=== PATIENT | male | born 1970 | race Caucasian/White ===

== ENCOUNTER 2019-10-30 06:19 | Emergency (ER) | payer OTHER ==
[~2019-10-30] VITALS: Ht 182.9 cm; Wt 72.6 kg
[2019-10-30 07:00] LABS: ABSOLUTE NEUTROPHILS 8.3 thou/uL (1.4-8.2); BASOPHILS 0.4 % (0.0-2.0); EOSINOPHILS 0.1 % (0.0-3.0); HEMATOCRIT 51.1 % (42.0-52.0); HEMOGLOBIN 17.6 gm/dL (14.0-18.0); MCH 31.5 pg (26.0-34.0); MCHC 34.3 g/dL (28.0-37.0); MCV 91.7 fL (80.0-100.0); MONOCYTES 3.5 % (1.0-8.0); PLATELET COUNT 199 thou/uL (150-400); RBC 5.57 mil/uL (4.50-6.00); RDW 12.7 % (10.5-14.5); WBC 9.4 thou/uL (4.0-11.0)
[2019-10-30 07:14] LABS: ANION GAP 6 mmol/L (7-16); BUN 13 mg/dL (7-18); CALCIUM 8.8 mg/dL (8.5-10.1); CHLORIDE 102 mmol/L (98-107); CO2 28 mmol/L (21-32); CREATININE 0.8 mg/dL (0.7-1.3); GLUCOSE 139 mg/dL (74-106); POTASSIUM 3.7 mmol/L (3.5-5.1); SODIUM 136 mmol/L (136-145)
[2019-10-30 07:27] VITALS: BP 133/83
[2019-10-30 07:27] LABS: ALBUMIN 4.3 g/dL (3.4-5.0); LIPASE 120 U/L (73-393); SGOT 25 U/L (15-37); SGPT 54 U/L (30-65); TOTAL BILIRUBIN 1.3 mg/dL (<0.1-1.0); TOTAL PROTEIN 7.7 g/dL (6.4-8.2); TROPONIN-I <0.06 ng/mL (<0.06)
[2019-10-30] MEDS ORDERED: PROTONIX 20 MG20 MG PO (07:39)
--- NOTE | 2019-10-30 08:01 | EKG ---
[place] [address] [facility] [employer] [place] [address] ELECTROCARDIOGRAM REPORT Name: COSTA LANDEROS [id number] Admission: 10/30/19 Attend Phys: Discharge: Date of : 70 Report #: [id number] REPORT FOR: //name// [facility] ED Test Date: 2019-10-30 Test Time: 06:35:43 Pat Name: COSTA JOSEPH Department: Room: Gender: Urgent Care Technician: HANG : 1970 Requested By: Rex Reyna Order Number: [id number] MD: Brenden Singh Measurements Intervals [place] Rate: 66 P: 13 AR: 191 QRS: 87 QRSD: 102 T: 31 QT: 402 QTc: 422 Interpretive Statements Sinus rhythm ST elev, probable normal early repol pattern No previous ECG available for comparison Electronically Signed On 10-30-2019 8:00:49 PROFESSOR OF ART by Brenden Singh [email or web address] <ELECTRONICALLY SIGNED> By: Brenden Singh MD 10/30/19 0800 0635 0635 Brenden Singh MD /CLINT
== END 2019-10-30 08:00 | disposition home or self-care (01) ==
LOC: ER 06:19
PROVIDERS: Emergency Medicine
DX: R10.13 Epigastric pain (principal); Z88.0 Allergy status to penicillin

== ENCOUNTER 2020-12-06 01:50 | Inpatient (IN) | payer OTHER ==
[~2020-12-06] VITALS: Ht 167.6 cm; Wt 77.1 kg
[2020-12-06] VITALS (7 sets, daily range): BP systolic 109–153; BP diastolic 72–91
[~2020-12-06 01:50] MED LIST: PROTONIX 20 MG20 MG PO
[2020-12-06 02:33] LABS: CALCIUM 8.9 mg/dL (8.5-10.1)
[2020-12-06 02:37] LABS: POTASSIUM 3.5 mmol/L (3.5-5.1)
[2020-12-06 02:39] LABS: ALBUMIN 4.7 g/dL (3.4-5.0); TOTAL PROTEIN 8.2 g/dL (6.4-8.2)
[2020-12-06 02:48] LABS: ABSOLUTE NEUTROPHILS 9.4 thou/uL (1.4-8.2); BASOPHILS 0.5 % (0.0-2.0); EOSINOPHILS 0.1 % (0.0-3.0); HEMATOCRIT 50.3 % (42.0-52.0); HEMOGLOBIN 17.4 gm/dL (14.0-18.0); LYMPHOCYTES 7.2 % (24.0-44.0); MCH 31.5 pg (26.0-34.0); MCHC 34.5 g/dL (28.0-37.0); MCV 91.5 fL (80.0-100.0); MONOCYTES 2.8 % (1.0-8.0); PLATELET COUNT 167 thou/uL (150-400); POLYS 89.4 % (36.0-66.0); RDW 12.6 % (10.5-14.5); WBC 10.6 thou/uL (4.0-11.0)
[2020-12-06 04:00] LABS: URINE BILIRUBIN NEGATIVE (Negative); URINE BLOOD NEGATIVE (Negative); URINE CLARITY CLEAR; URINE COLOR YELLOW; URINE GLUCOSE-RANDOM* TRACE (Negative); URINE KETONES NEGATIVE (Negative); URINE LEUKOCYTES-REFLEX NEGATIVE (Negative); URINE NITRITE-REFLEX NEGATIVE (Negative); URINE PROTEIN (DIPSTICK) NEGATIVE (Negative); URINE UROBILINOGEN 0.2 E.U./dl (0.2-1.0)
--- NOTE | 2020-12-06 06:26 | NUR ---
PT IS A/O X4. ROOM AIR. VSS. AFEBRILE. NO PAIN IN ABDOMEN AT THIS TIME. ADMISSION IS COMPLETED. CALL LIGHT IS WITHIN REACH. WILL CONTINUE TO MONITOR.
--- NOTE | 2020-12-06 18:46 | NUR ---
Assmaverick pt care this am, Vs stable pain is located in the abdomen manged with pain medications. Pt only speaks Hebrew with very limited Bengali.Kept NPO, pain is manged with medications. POC followed with no signs or verbalizations of distress noted. Pt aware of surgery and as well, Consent printed and on the chart. Endorsed to the night nurse.
[2020-12-07] VITALS (7 sets, daily range): BP systolic 94–117; BP diastolic 53–75
[2020-12-07 04:58] LABS: ALBUMIN 3.3 g/dL (3.4-5.0); CALCIUM 8.4 mg/dL (8.5-10.1); POTASSIUM 3.5 mmol/L (3.5-5.1); TOTAL BILIRUBIN 2.7 mg/dL (0.2-1.0); TOTAL PROTEIN 6.4 g/dL (6.4-8.2)
--- NOTE | 2020-12-07 07:38 | EKG ---
[address] [place] [place] [address] ELECTROCARDIOGRAM REPORT Name: COSTA LANDEROS Room #: 447-P ADM IN M.R.#: [id number] Admission: 12/06/20 Attend Phys: Enoch Shearer MD Discharge: Date of : 70 Report #: [id number] [facility] ED Test Date: 2020-12-06 Test Time: 02:32:51 Pat Name: COSTA CHRISTIANO JOSEPH Department: Room: [facility] Gender: M Account Director: : 1970 Requested By: Kris Li Order Number: [id number] : Rodriguez Chavez Measurements Intervals [place] Rate: 66 P: 52 MO: 184 QRS: 82 QRSD: 106 T: 34 QT: 410 QTc: 430 Interpretive Statements Sinus rhythm Compared to ECG 10/30/2019 06:35:43 ST (T wave) deviation no longer present Electronically Signed On 12-07-2020 7:38:21 [employer]EN[employer]AL OFFICE TROUBLE SHOOTER by Rodriguez Chavez [email or web address] <ELECTRONICALLY SIGNED> By: Rodriguez Chavez MD, [facility] 12/07/20 0738 0232 0232 Rodriguez Chavez MD, FACC /EPI
--- NOTE | 2020-12-07 08:05 | NUR ---
PT AMBULATING TO BATHROOM INDEPENDENTLY AND IS TOLERATING WELL. MORPHINE PROVIDING PAIN RELIEF. PLAN FOR LAP KELVIN 12/07. RESTING COMFORTABLY. FREQUENT OBSERVATION.
--- NOTE | 2020-12-07 09:26 | NUR ---
Received awake on bed. On nothing per orem, pt informed and aware. On MS, not on telemetry; no complains and signs of chest pain, crushing sensation and heaviness. On room air. Vital signs stable. Continent of bowel and bladder, able to use urinal. Up ad liliam, independent with ADLs. With D51/2NS at 125cc/hr, infusing well at L AC. No complains of pain made during assessment. No nausea, no vomiting and no abdominal pain noted. Scheduled for lap chi today, a/w time; consent to be signed. To continue monitoring patient.
--- NOTE | 2020-12-07 14:39 | NUR ---
Chart reviewed and case discussed with the care team. Pt up ad liliam in his room. here at bedside and upset that pt's surgery is not until this afternoon. Pt was working and indep prior to admission. He has health ins in place for followup care and good family support. Lucius mireles planned this afternoon. No cm interventions indicated at this time.
[2020-12-08 00:32] VITALS: BP 100/62
--- NOTE | 2020-12-08 04:21 | NUR ---
Assumed pt care at 1900. A/OX4,VSS. C/o pain / at this time but more with movement. Denies nausea and had sandwich/snacks for supper w/o any problems. Up ad liliam,encouraged to call for help as needed and doing so. Has 4 lap sites on abd C/D/I with dermabond. IVF infusing via LAC w/o problems noted. Pt resting quietly at this time,will continue to monitor pt.
[2020-12-08 08:41] VITALS: BP 98/63
--- NOTE | 2020-12-08 12:24 | NUR ---
Received awake on bed. Due medications given as prescribed, able to swallow meds w/o difficulty. On room air. Vital signs stable. On MS, not on telemetry; no complains and signs of chest pain, crushing sensation and heaviness. Assisted in ADLs. On regular diet- tolerating well; no nausea, no vomiting and no abdominal pain noted. Continent of bowel and bladder, using urinal and going to the toilet at times. Up ad liliam. S/P lap chi 12/07; 4 abdominal lap sites- C/D/I; no bleeding and no drainage noted. With D51/2NS at 75cc/hr, infusing well at L AC- intact. With at bedside, update given. Pt seen and examined by Dr Madrigal this AM, to keep patient 1 more day- to monitor lab test- pt informed and aware. To continue monitoring patient.
[2020-12-08 16:30] VITALS: BP 98/60
[2020-12-08 21:23] VITALS: BP 111/74
[2020-12-09 05:50] LABS: ALBUMIN 2.9 g/dL (3.4-5.0); CALCIUM 8.2 mg/dL (8.5-10.1); CREATININE 0.9 mg/dL (0.7-1.3); POTASSIUM 3.8 mmol/L (3.5-5.1); TOTAL BILIRUBIN 1.1 mg/dL (0.2-1.0); TOTAL PROTEIN 6.1 g/dL (6.4-8.2)
[2020-12-09] MEDS ORDERED: MIRALAX17 GM PO (07:08)
[2020-12-09] MEDS ORDERED: IBUPROFEN 200200 M1 PO (07:08)
[2020-12-09] MEDS ORDERED: OXYCODONE HCL 55 MG PO (07:08)
[2020-12-09] MEDS ORDERED: STIMULANT LAXA1 EACH PO (07:09)
[2020-12-09 08:39] VITALS: BP 122/72
--- NOTE | 2020-12-09 09:40 | NUR ---
ON-GOING ASSESSMENT: PT HAS ORDERS TO DISCHARGE HOME TODAY NO NEEDS FROM CM. CASE CLOSED.
[2020-12-09 10:11] VITALS: BP 111/74
--- NOTE | 2020-12-09 11:07 | NUR ---
Received awake on bed. Due medications given as prescribed, able to swallow meds w/o difficulty- on scheduled ibuprofen for pain. On MS, not on telemetry; no complains and signs of chest pain, crushing sensation and heaviness. On room air. On regular diet- tolerating well; no nausea, no vomiting and no abdominal pain noted. With SL at L AC- intact. With 4 abdominal lap sites with dermabond, C/D/I; no bleeding and no drainage noted. Continent of bowel and bladder, able to go to the toilet independently. Up ad liliam. Flu vaccine given to L arm as ordered, no adverse reactions noted. With discharge orders from Dr Madrigal- ROSALIO informed, no needs. Discharge instructions, follow up schedule and prescription given and instructed. Discharge forms signed. Patient acknowledged understanding of post op care, discharge instructions and follow up schedule. Pt fetched by his ; brought out of the unit via wheelchair with his personal belongings. Patient discharged.
--- NOTE | 2020-12-09 18:09 | PATH ---
[facility] [address] [place] [address] PATHOLOGY RPT PROCEDURE Name: COSTA LANDEROS Room #: 447-P [facility] IN M.R.#: [id number] Admission: 12/06/20 Date of : 70 Discharge: 12/09/20 Report #: [id number] Path Case #: [id number] [facility] Accession Number: [id number] . 01 Material submitted: . gallbladder - GALLBLADDER . 01 Clinical history: . LAPAROSCOPIC CHOLECYSTECTOMY CHOLECYSTITIS . 02 Diagnosis: Gallbladder, cholecystectomy: - Moderate acute, hemorrhagic and ulcerative cholecystitis. - Cholelithiasis. - Cholesterolosis. (IUV/db; 12/09/2020) LBQ 12/09/2020 1449 Local . 02 Electronically signed: . Lesley Guerra MD, Pathologist NPI- [id number] . 01 Gross description: . Fixative: Formalin Labeled: Gallbladder Specimen received: Previously opened gallbladder Dimensions: 9.9 x 4.3 x 2.5 cm Serosa: Dusky martinez-salgado Lymph node: Not identified Mucosa: Velvety, light brown with mild, diffuse cholesterolosis Average wall thickness: 0.1 Calculi: A single light brown calculus is present Abnormalities: None identified . Director Of Cardiac Rehabilitation body, fundus, and the cystic duct margin in A1. (CAA; 12/08/2020) QAC/QAC 12/08/2020 1701 Local . 02 Pathologist provided ICD-10: K80.00, K82.4 . 02 CPT . 964556 Specimen Comment: Report sent to Performed at: [address] [address] PATHOLOGY RPT PROCEDURE Name: COSTA LANDEROS Room #: 447-P DIS IN M.R.#: [id number] Admission: 12/06/20 Date of : 70 Discharge: 12/09/20 Report #: [id number] Path Case #: [id number] [address] [facility] [address], [place], [place] [id number] MD Sami Herrera MD Phone: [phone] Performed at: [address] [id number] MD Lesley Guerra MD Phone: [phone]
== END 2020-12-09 12:09 | disposition home or self-care (01) | DRG 419 ==
LOC: ER 01:50 → EROBS 04:03 → 4S 04:03
PROVIDERS: Emergency Medicine; Surgery; ADMIT Surgery; ATTEND Surgery
PROC: 0FT44ZZ Resection of Gallbladder, Percutaneous Endoscopic Approach (ICD-10-PCS; principal; 2020-12-07)
DX: K80.00 Calculus of gallbladder with acute cholecystitis without obstruction (principal); Z88.1 Allergy status to other antibiotic agents; Z88.0 Allergy status to penicillin; Z23 Encounter for immunization; Z20.822 Contact with and (suspected) exposure to COVID-19
CPT/HCPCS: 10102; 50010; 50101; 50411; 50445; 50555; 50558; 51489; 52265; 52266; 53307; 53310; 53312; 54022; 54118; 55245; 56462; 56525; 56526; 56674; 58574; 62110; 62900; 70005